=== PATIENT | female | born 1975 | race African-American/Black ===

== ENCOUNTER 2024-05-28 10:55 | Emergency (ER) | payer BC, OTHER ==
[~2024-05-28] VITALS: Ht 177.8 cm; Wt 84.0 kg
[2024-05-28 10:57] VITALS: O2SAT 100
[2024-05-28] MEDS: ACETAMINOPHEN 325MG TABLET PO ONE (12:07)
[2024-05-28 13:55] VITALS: BP 117/80; PULSE 68; RESP 16; TEMP 37.05852; O2SAT 100
== END 2024-05-28 13:59 | disposition home or self-care (01) ==
LOC: ER 10:55
DX: S09.90XA Unspecified injury of head, initial encounter (principal); M25.531 Pain in right wrist; M25.571 Pain in right ankle and joints of right foot; J45.909 Unspecified asthma, uncomplicated; X58.XXXA Exposure to other specified factors, initial encounter; Y93.89 Activity, other specified; Y92.89 Other specified places as the place of occurrence of the external cause; Y99.8 Other external cause status
CPT/HCPCS: 71045; 73110; 73610; 73630; 99291

== ENCOUNTER 2025-04-18 16:07 | Emergency (ER) | payer OTHER ==
[~2025-04-18] VITALS: Ht 175.3 cm; Wt 91.0 kg
[2025-04-18 16:16] VITALS: TEMP 36.7; O2SAT 99
[2025-04-18 19:53] VITALS: PULSE 60
[2025-04-18] MEDS: CYCLOBENZAPRINE 10MG TABLET PO ONE (19:53)
[2025-04-18] MEDS: KETOROLAC 30MG/ML VIAL IM ONE (19:53)
[2025-04-18 19:54] VITALS: BP 135/85; RESP 18
[2025-04-18] MEDS: LIDOCAINE 5% PATCH TOP SCH (19:54)
[2025-04-18] MEDS ORDERED: CYCL10TA21 MT (20:35)
[2025-04-18] MEDS ORDERED: LIDO700A30 TP (20:35)
[2025-04-18] MEDS ORDERED: ACET-2708 MT (20:35)
== END 2025-04-18 22:17 | disposition home or self-care (01) ==
LOC: ER 16:25
DX: M43.12 Spondylolisthesis, cervical region (principal); M79.602 Pain in left arm; M11.262 Other chondrocalcinosis, left knee; M43.16 Spondylolisthesis, lumbar region; M54.42 Lumbago with sciatica, left side; J45.909 Unspecified asthma, uncomplicated
CPT/HCPCS: 71100; 72040; 72100; 73560; 96372; 99284; J1885; Z7610